=== PATIENT | female | born 1955 | race Caucasian/White ===

== ENCOUNTER 2021-09-16 10:01 | Emergency (ER) | payer OTHER, SELFPAY ==
--- NOTE | 2021-09-16 10:08 | ED.URI ---
HPI - URI/Sore Throat General Chief Complaint: Upper Respiratory Infection Stated Complaint: sore throat ear pain Time Seen by Provider: 09/16/21 10:08 Source: patient and RN notes reviewed History of Present Illness HPI Narrative: Patient is 66-year-old female who presents the urgent care with complaints of sore throat, bilateral ear pain and fatigue. Patient states the symptoms started on 06 September and she is attempted to contact her doctor to no avail. Patient denies of any fever, nausea, vomiting, shortness of breath. Does report of a mild mild cough. Patient denies of any recent exposures to illness. States that she has had COVID vaccines. Patient has been taking Robitussin and use of cough drops. No other acute complaints. No acute distress noted. Patient aware of the plan of care. Some parts of this dictation were generated by voice recognition software and may contain typographical and/or grammatical inaccuracies. Related Data Home Medications Medication Instructions Recorded Confirmed gabapentin 300 mg DIRECTED 09/16/21 09/16/21 insulin glargine [Basaglar KwikPen 100 unit SUBCUT DIRECTED 09/16/21 09/16/21 U-100 Insulin] levothyroxine 125 mcg DIRECTED 09/16/21 09/16/21 naproxen 500 mg DIRECTED 09/16/21 09/16/21 pravastatin 40 mg DIRECTED 09/16/21 09/16/21 sertraline 100 mg DIRECTED 09/16/21 09/16/21 timolol maleate 0.5 drp DIRECTED 09/16/21 09/16/21 tramadol 50 mg DIRECTED 09/16/21 09/16/21 Allergies Allergy/AdvReac Type Severity Reaction Status Date / Time albuterol Allergy Fainting Verified 09/16/21 10:23 Sulfa (Sulfonamide Allergy Rash Verified 09/16/21 10:23 Antibiotics) Review of Systems Review of Systems: CONSTITUTIONAL: Denies fever, chills, or sweats. Reports of fatigue EYES: Denies visual changes, redness, or discharge. ENT: Reports of postnasal drainage, bilateral otalgia and sore throat CARDIOVASCULAR: Denies chest pain, palpitations, or edema. RESPIRATORY: Reports of nonproductive cough without dyspnea GASTROINTESTINAL: Denies abdominal pain, nausea, vomiting, or diarrhea. GENITOURINARY: Denies dysuria or hematuria. SKIN: Denies rash or itching. MUSCULOSKELETAL: Denies back pain, joint pain, or myalgia. NEUROLOGIC: Denies headache, numbness, or weakness. All other systems reviewed are negative, except as documented in HPI. PMFSH Comments At the time of my signature, I reviewed and agree with the nursing past medical, surgical, social, and family history. There is no relevant family history pertinent to the patient complaint. Exam Narrative: GENERAL: This is a well-nourished, well-developed patient. Appears very fatigued HEAD: normocephalic, atraumatic. EYES: PERRL. Sclera clear/white. Vision is grossly intact. EARS: External ears normal, auditory canals clear and without drainage, mild bilateral effusions without otitis. TMs normal without perforation. Hearing grossly intact. NOSE: External nose normal with no obvious nasal discharge, nares without redness, no rhinorrhea. THROAT: Mucous membranes moist, posterior pharynx clear. Moderate postnasal drainage NECK: Neck supple, non-tender without lymphadenopathy, masses or thyromegaly. CARDIOVASCULAR: Regular rate and rhythm without murmurs, gallops, or rubs. RESPIRATORY: Clear to auscultation. Breath sounds equal bilaterally. No wheezes, rales, or rhonchi. SKIN: warm, intact with no suspicious lesions or rash, good texture and turgor. NEURO: awake, alert, and oriented to person, place and time. There were no obvious focal neurologic abnormalities. EXTREMITIES: No clubbing, cyanosis, or edema. Course Course Level of Care: Express Care Visit Vital Signs Vital signs: Vital Signs Temperature 98.4 F 09/16/21 10:11 Pulse Rate 77 09/16/21 10:11 Respiratory Rate 16 09/16/21 10:11 Blood Pressure 107/63 09/16/21 10:11 Pulse Oximetry 98 09/16/21 10:11 Temperature 98.4 F 09/16/21 10:11 Pulse
[2021-09-16 10:11] VITALS: BP 107/63; PULSE 77; RESP 16; TEMP 36.9; O2SAT 98
== END 2021-09-16 11:00 | disposition home or self-care (01) ==
PROVIDERS: Emergency Provider Nurse Practitioner Family; PCP Internal Medicine
DX: J32.9 Chronic sinusitis, unspecified (principal); Z20.822 Contact with and (suspected) exposure to COVID-19; E11.9 Type 2 diabetes mellitus without complications; E03.9 Hypothyroidism, unspecified; H26.9 Unspecified cataract
CPT/HCPCS: 87081; 87426; 87880; 99213; C9803; G0463

== ENCOUNTER 2022-07-10 10:47 | Emergency (ER) | payer OTHER, SELFPAY ==
--- NOTE | ~2022-07-10 | XR_ITS ---
EXAMINATION: XR foot RT min 3V DATE: 07/10/2022 11:26 INDICATION: Right foot pain, initial encounter TECHNIQUE: Dorsoplantar, lateral, and 2 oblique views of the right foot were obtained. COMPARISON: None. FINDINGS: The bones are osteopenic which limits sensitivity for fracture. There appears to be an acut e, transverse, nondisplaced fracture at the lateral base of the fifth metatarsal. There is mild adjac ent soft tissue swelling. 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 There is calcified atherosclerosis. IMPRESSION: 1. Probable nondisplaced fracture at the base of the fifth metatarsal, sensitivity limited by osteope fina. Reviewed, dictated and finalized at location B. RACTIVE ART DIRECTOR IMPRESSION: 1. Probable nondisplaced fracture at the base of the fifth metatarsal, sensitiv ity limited by osteopenia.
[2022-07-10 10:54] VITALS: BP 117/62; PULSE 79; RESP 16; TEMP 37.3; O2SAT 98
--- NOTE | 2022-07-10 11:30 | PC.NURSE ---
PT TAKEN TO RADIOLOGY IN WHEELCHAIR
--- NOTE | 2022-07-10 11:56 | ED.LOWEXIN ---
HPI - Extremity Injury (Lower) General Chief Complaint: Extremity Injury, Lower Stated Complaint: Right ankle injury Source: patient Mode of arrival: ambulatory Limitations: no limitations History of Present Illness HPI Narrative: 66-year-old female here with a right foot injury. The initial injury occurred 06/23. She was standing up from sleeping on the floor and rolled her ankle onto the outer side of her right foot. It initially was bruised on the inner top part of her right foot and swollen and bruised on the outer aspect of the top of her foot. She has pain with weightbearing and has been hobbling around her house to perform ADLs. She tried using a post-op boot but it was uncomfortable so she stopped using it. Has a history of DM, neuropathy, hypothyroid, and short-term memory problems. She takes gabapentin for neuropathic pain; has not taken anything in addition for the pain. Intermittently she ices it. She has an in-home caregiver MWF for a half day. Denies numbness, tingling, loss of sensation, fever, chills, or malaise. Related Data Home Medications Medication Instructions Recorded Confirmed gabapentin 300 mg capsule 300 mg DIRECTED 09/16/21 07/10/22 insulin glargine 100 unit/mL (3 100 unit subcut DIRECTED 09/16/21 07/10/22 mL) subcutaneous pen (Basaglar KwikPen U-100 Insulin) levothyroxine 125 mcg tablet 125 mcg DIRECTED 09/16/21 07/10/22 naproxen 500 mg tablet 500 mg DIRECTED 09/16/21 07/10/22 sertraline 100 mg tablet 100 mg DIRECTED 09/16/21 07/10/22 timolol maleate 0.5 % eye drops 0.5 drp DIRECTED 09/16/21 07/10/22 tramadol 50 mg tablet 50 mg DIRECTED 09/16/21 07/10/22 rosuvastatin 20 mg tablet 20 mg PO DIRECTED 07/10/22 07/10/22 Allergies Allergy/AdvReac Type Severity Reaction Status Date / Time albuterol Allergy Fainting Verified 07/10/22 11:15 Sulfa (Sulfonamide Allergy Rash Verified 07/10/22 11:15 Antibiotics) Review of Systems Review of Systems: CONSTITUTIONAL: Denies body aches, fever, chills EYES: Denies visual changes ENT: Denies rhinorrhea, congestion CARDIOVASCULAR: Denies chest pain, palpitations, or edema. RESPIRATORY: Denies cough or dyspnea. GASTROINTESTINAL: Denies abdominal pain, nausea, vomiting, or diarrhea. SKIN: Denies rash, itching, or wounds. MUSCULOSKELETAL: Endorses pain to the right foot. NEUROLOGIC: Denies headache, numbness, tingling, or weakness. PSYCH: Denies depression or anxiety. All systems reviewed & are unremarkable except as noted in HPI and below PMFSH Past Medical History Medical History (Updated 07/10/22 @ 15:45 by Maria Fernanda Cooper, PERSONNEL RECRUITER) Diabetes Neuropathy Poor short term memory Comments At time of signature, I have reviewed and agree with nursing past medical, surgical, social and family history unless otherwise noted. Please see nursing chart for further information. There is no relevant family history pertinent to the presenting complaint Exam Narrative: GENERAL: Well-appearing, well-nourished, and in no acute distress. HEAD: Normocephalic, atraumatic. CHEST: Speaks in full sentences. No respiratory distress. HEART: Regular rate and rhythm. Normal and equal peripheral pulses. EXTREMITIES: Right lateral foot mild redness and moderate swelling, tender with light palpation; foot has normal strength and sensation, normal range of motion. Unable to tolerate full weight bearing on right foot. No open wounds, or obvious deformity; alignment normal, pulse palpable and equal bilaterally, skin warm, dry, pink. Capillary refill less than 3 seconds. SKIN: Warm, dry, no rash. NEURO: Alert and oriented x3. Course Course Emergency Course: Patient is aware of diagnosis, understands and agrees to treatment plan. Anticipatory guidance given. Patient agrees to follow-up as directed and is aware of reasons to seek care at the emergency department. Portions of this record may have been created with voice recognition software Ed
== END 2022-07-10 12:35 | disposition home or self-care (01) ==
PROVIDERS: Emergency Provider Nurse Practitioner Family; PCP Internal Medicine
DX: S92.351A Displaced fracture of fifth metatarsal bone, right foot, initial encounter for closed fracture (principal); E11.9 Type 2 diabetes mellitus without complications; Z79.4 Long term (current) use of insulin; Z79.1 Long term (current) use of non-steroidal anti-inflammatories (NSAID); Z79.891 Long term (current) use of opiate analgesic; X50.0XXA Overexertion from strenuous movement or load, initial encounter
CPT/HCPCS: 73630; 99213; G0463